=== PATIENT | male | born 1945 | race Caucasian/White ===

== ENCOUNTER 2021-02-21 15:50 | Emergency (ER) | payer OTHER ==
[~2021-02-21] VITALS: Ht 185.4 cm; Wt 93.0 kg
[2021-02-21 20:10] VITALS: BP 138/66
== END 2021-02-21 21:33 | disposition home or self-care (01) ==
LOC: ER 15:50
DX: U07.1 COVID-19 (principal); J18.1 Lobar pneumonia, unspecified organism; R11.2 Nausea with vomiting, unspecified; R51.9 Headache, unspecified; R53.83 Other fatigue
CPT/HCPCS: 36415; 71045; 87426